=== PATIENT | female | born 1945 | race Caucasian/White ===

== ENCOUNTER 2023-09-25 09:12 | Outpatient (CLI) | payer MEDICARE | END 2023-09-25 09:13 | disposition home or self-care (01) | LOC: CSHRAD 09:12 | PROVIDERS: ATTEND Neurological Surgery | DX: M54.16 Radiculopathy, lumbar region (principal); R93.7 Abnormal findings on diagnostic imaging of other parts of musculoskeletal system | CPT/HCPCS: 72100 ==

== ENCOUNTER 2025-04-20 08:57 | Outpatient (CLI) | payer MEDICARE ==
[2025-04-20 09:44] LABS: Estimated GFR - POC 88.0
[2025-04-20] MEDS ORDERED: Iopamidol 300 61% 100 ML VIAL FS ONE (13:18)
== END 2025-04-20 08:58 | disposition home or self-care (01) ==
LOC: CSHCT 08:57
PROVIDERS: ATTEND Physician Assistant Medical
DX: K52.9 Noninfective gastroenteritis and colitis, unspecified (principal); K57.30 Diverticulosis of large intestine without perforation or abscess without bleeding; K56.609 Unspecified intestinal obstruction, unspecified as to partial versus complete obstruction; K59.00 Constipation, unspecified
CPT/HCPCS: 36415; 74177; 82565; Q9967